=== PATIENT | male | born 1995 | race Caucasian/White ===

== ENCOUNTER 2020-11-23 08:46 | Emergency (ER) | payer BC, SELFPAY ==
[2020-11-23 08:48] VITALS: BP 140/76; PULSE 112; RESP 16; TEMP 36.9; O2SAT 98; BMI 25.0
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
[2020-11-23 09:11] LABS: Basophils % 0.2 % (0.1-2.0); Eosinophils # 0.1 K/mm3 (0.0-0.4); Eosinophils % 0.5 % (0.1-12.0); Hematocrit 46.2 % (42.0-52.0); Hemoglobin 15.2 g/dL (14.1-18.0); Lymphocytes # 1.6 K/mm3 (0.7-4.5); Lymphocytes % 10.2 % (10-50); Mean Corpuscular HGB Conc 32.9 g/dL (31.8-35.4); Mean Corpuscular Hemoglobin 30.1 pg (27.0-31.2); Mean Corpuscular Volume 91.6 fl (80-94); Mean Platelet Volume 8.8 fl (7.4-10.4); Monocytes # 0.8 K/mm3 (0.1-1.0); Monocytes % 5.3 % (1.7-9.3); Neutrophils # 12.7 K/mm3 (1.8-7.8); Neutrophils % 83.7 % (37.0-80.0); Platelet Count 210 K/mm3 (142-424); Red Blood Count 5.04 M/mm3 (4.60-6.20); Red Cell Distribution Width 12.7 % (11.5-17.5); White Blood Count 15.2 K/mm3 (4.8-10.8)
[2020-11-23 09:22] LABS: Alanine Aminotransferase 19 U/L (12-78); Albumin Level 4.6 g/dl (3.5-5.0); Albumin/Globulin Ratio 1.6 (1.1-1.8); Alkaline Phosphatase 93 U/L (38-126); Anion Gap 10.1 mEq/L (5-15); Aspartate Amino Transferase 38 U/L (17-59); Bilirubin,Total 0.6 mg/dl (0.2-1.3); Blood Urea Nitrogen 9 mg/dl (9-20); Calcium 8.8 mg/dl (8.4-10.2); Carbon Dioxide 26 mmol/L (22.0-30.0); Chloride 105 mmol/L (98-107); Creatinine Clearance Estimated 198 mL/min (50-200); Estimated Glomerular Filt Rate 139 ml/min (>60); GFR (African American) 168 ML/MIN (>60); Globulin 2.8 g/dL (1.3-3.2); Glucose 107 mg/dl (74-100); Lipase 63 U/L (23-300); Potassium 4.1 mmoL/L (3.5-5.1); Sodium 137 mmol/L (136-145); Total Protein,Serum 7.4 g/dl (6.3-8.2)
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
[2020-11-23 09:34] VITALS: BP 124/75; PULSE 100; O2SAT 99
[2020-11-23 09:39] LABS: MANUAL DIFFERENTIAL MANUAL DIFFERENTIAL (MANUAL DIFF)
[2020-11-23 09:55] LABS: Lymphocytes % 8 % (10-50); Monocytes % 8 % (2-9); Neutrophils % 82 % (42-76); Total Cells Counted 100
[2020-11-23 09:56] LABS: Platelet Estimate Normal; RBC Morphology Normal
[2020-11-23 10:00] VITALS: BP 120/66; PULSE 98; O2SAT 100
[2020-11-23 10:00] LABS: Lactic Acid 1.1 mmol/L (0.7-2.1)
[2020-11-23 10:30] VITALS: BP 128/66; PULSE 105; RESP 20; O2SAT 99
[2020-11-23 11:15] VITALS: BP 128/78; PULSE 78; RESP 16; TEMP 36.6; O2SAT 98
--- NOTE | 2020-11-23 11:15 | PC.NURSE ---
pso dsging applied to rt lower leg
== END 2020-11-23 11:17 | disposition home or self-care (01) ==
PROVIDERS: Emergency Provider Emergency Medicine; PCP Pediatrics
DX: S81.811A Laceration without foreign body, right lower leg, initial encounter (principal); S06.0X1A Concussion with loss of consciousness of 30 minutes or less, initial encounter; V86.99XA Unspecified occupant of other special all-terrain or other off-road motor vehicle injured in nontraffic accident, initial encounter
CPT/HCPCS: 12002; 70450; 71045; 72170; 73070; 73560; 73590; 80053; 83605; 83690; 85007; 85025; 96365; 96375; 99283